=== PATIENT | male | born 1995 | race Caucasian/White ===

== ENCOUNTER 2017-01-20 19:26 | Emergency (ER) | payer BC ==
[~2017-01-20] VITALS: Ht 180.3 cm; Wt 106.1 kg
[2017-01-20 19:42] VITALS: BP 169/73
[2017-01-20 20:26] LABS: BILIRUBIN NEGATIVE (NEGATIVE); BLOOD NEGATIVE (NEGATIVE); CLARITY CLEAR (CLEAR); COLOR YELLOW (YELLOW); GLUCOSE NEGATIVE (NEGATIVE); KETONE NEGATIVE (NEGATIVE); LEUKO ESTERASE NEGATIVE (NEGATIVE); NITRITE NEGATIVE (NEGATIVE); UROBILINOGEN 0.2 E.U./dl (0.2-1.0)
[2017-01-20 20:34] LABS: BACTERIA TRACE
[2017-01-20 21:18] LABS: BASO % 0.3 % (0.0-1.0); EOS # 0.3 10*3/uL (0.0-0.4); HEMATOCRIT 39.1 % (42.0-52.0); HEMOGLOBIN 13.2 g/dl (14.0-18.0); LYMPH # 3.2 10*3/uL (1.3-4.4); LYMPH % 32.9 % (27.0-41.0); MEAN CELL VOLUME 89.7 fl (80.0-94.0); MEAN CORPUSCULAR HGB 30.3 pg (27.0-31.0); MEAN CORPUSCULAR HGB CONC 33.8 g/dl (33.0-37.0); MEAN PLATELET VOLUME 9.8 fl (9.6-12.3); MONO # 0.6 10*3/uL (0.1-1.0); MONO % 5.6 % (3.0-9.0); NEUT # 5.7 10*3/uL (2.3-7.9); PLATELET COUNT AUTOMATED 349 10*3/uL (130-400); RED BLOOD COUNT 4.36 10*6/uL (4.50-5.90); RED CELL DISTRI WIDTH 12.2 % (0-14.5); WHITE BLOOD COUNT 9.8 10*3/uL (4.8-10.8)
[2017-01-20 21:33] LABS: ALBUMIN 3.9 gm/dl (3.1-4.5); ALKALINE PHOSPHATASE 72 U/L (45-117); BUN 5 mg/dl (7-24); CHLORIDE 104 mmol/L (98-107); CREATININE 0.74 mg/dL (0.70-1.30); POTASSIUM 3.6 mmol/L (3.5-5.1); SGOT/AST 18 IU/L (3-35); SGPT/ALT 33 U/L (12-78); SODIUM 141 mmol/L (136-145); TOTAL PROTEIN 7.4 gm/dL (6.4-8.2)
== END 2017-01-20 23:54 | disposition home or self-care (01) ==
LOC: ED 19:26
PROVIDERS: Emergency Medicine
DX: I88.0 Nonspecific mesenteric lymphadenitis (principal); F17.200 Nicotine dependence, unspecified, uncomplicated

== ENCOUNTER 2017-06-16 06:09 | Emergency (ER) | payer BC ==
[~2017-06-16] VITALS: Ht 182.8 cm; Wt 104.3 kg
[2017-06-16 06:11] VITALS: BP 123/65
[2017-06-16] MEDS ORDERED: ZITHROMAX250 MG PO (06:32)
[2017-06-16] MEDS ORDERED: ROBITUSSIN DM3840 ML PO (06:32)
[2017-06-16] MEDS ORDERED: PREDNISONE20 M1 PO (06:32)
== END 2017-06-16 06:53 | disposition home or self-care (01) ==
LOC: ED 06:09
DX: J20.9 Acute bronchitis, unspecified (principal); I88.0 Nonspecific mesenteric lymphadenitis; Z91.040 Latex allergy status

== ENCOUNTER 2018-11-11 20:52 | Emergency (ER) | payer BC ==
[~2018-11-11] VITALS: Ht 182.8 cm; Wt 108.9 kg
[2018-11-11 20:52] VITALS: BP 120/70
[~2018-11-11 20:52] MED LIST: PREDNISONE20 M1 PO; ROBITUSSIN DM3840 ML PO; ZITHROMAX250 MG PO
[2018-11-11] MEDS ORDERED: CLINDAMYCIN HC300 MG PO (21:10)
[2018-11-11] MEDS ORDERED: IBU800 MG PO (21:10)
== END 2018-11-11 22:06 | disposition home or self-care (01) ==
LOC: ED 20:52
DX: K08.89 Other specified disorders of teeth and supporting structures (principal); Z79.2 Long term (current) use of antibiotics; Z79.899 Other long term (current) drug therapy

== ENCOUNTER 2019-11-05 16:28 | Emergency (ER) | payer SELFPAY ==
[~2019-11-05] VITALS: Ht 182.8 cm; Wt 113.4 kg
[~2019-11-05 16:28] MED LIST changes: +CLINDAMYCIN HC300 MG PO; +IBU800 MG PO
[2019-11-05 16:43] VITALS: BP 133/61
[2019-11-05] MEDS ORDERED: NAPROSYN500 MG PO (16:49)
[2019-11-05] MEDS ORDERED: AMOXICILLIN500 M2 PO (16:49)
== END 2019-11-05 18:01 | disposition home or self-care (01) ==
LOC: ED 16:28
DX: K08.89 Other specified disorders of teeth and supporting structures (principal); Z79.899 Other long term (current) drug therapy

== ENCOUNTER 2020-03-22 15:54 | Emergency (ER) | payer BC ==
[~2020-03-22] VITALS: Wt 106.6 kg
[~2020-03-22 15:54] MED LIST changes: +AMOXICILLIN500 M2 PO; +NAPROSYN500 MG PO
[2020-03-22 16:54] VITALS: BP 150/76
[2020-03-22] MEDS ORDERED: CLINDAMYCIN HC300 MG PO (19:21)
[2020-03-23] MEDS ORDERED: CLINDAMYCIN HC300 MG PO (16:25)
== END 2020-03-22 19:39 | disposition home or self-care (01) ==
LOC: ED 15:54
DX: K04.7 Periapical abscess without sinus (principal); Z79.899 Other long term (current) drug therapy

== ENCOUNTER 2020-07-17 02:03 | Emergency (ER) | payer BC ==
[~2020-07-17] VITALS: Ht 187.9 cm; Wt 97.1 kg
[2020-07-17 02:45] LABS: BASO # 0.1 10*3/uL (0.0-0.1); BASO % 0.4 % (0.0-1.0); EOS # 0.4 10*3/uL (0.0-0.4); HEMATOCRIT 40.9 % (42.0-52.0); LYMPH # 3.4 10*3/uL (1.3-4.4); LYMPH % 29.4 % (27.0-41.0); MEAN CELL VOLUME 90.1 fl (80.0-94.0); MEAN CORPUSCULAR HGB 29.5 pg (27.0-31.0); MEAN CORPUSCULAR HGB CONC 32.8 g/dl (33.0-37.0); MONO # 0.8 10*3/uL (0.1-1.0); MONO % 6.9 % (3.0-9.0); NEUT % 60.1 % (47.0-73.0); PLATELET COUNT AUTOMATED 359 10*3/uL (130-400); RED BLOOD COUNT 4.54 10*6/uL (4.50-5.90); RED CELL DISTRI WIDTH 12.4 % (0-14.5); WHITE BLOOD COUNT 11.7 10*3/uL (4.8-10.8)
[2020-07-17 03:01] LABS: ALBUMIN 3.7 gm/dl (3.1-4.5); ALKALINE PHOSPHATASE 73 U/L (45-117); BUN 5 mg/dl (7-24); CHLORIDE 107 mmol/L (98-107); CREATININE 0.78 mg/dL (0.70-1.30); LIPASE 139 U/L (73-393); POTASSIUM 3.7 mmol/L (3.5-5.1); SGOT/AST 6 IU/L (3-35); SGPT/ALT 29 U/L (12-78); SODIUM 138 mmol/L (136-145); TOTAL PROTEIN 7.2 gm/dL (6.4-8.2)
[2020-07-17 07:28] VITALS: BP 116/50
[2020-07-17] MEDS ORDERED: ZOFRAN4 MG PO (07:51)
[2020-07-17] MEDS ORDERED: IBU800 M2 PO (07:52)
== END 2020-07-17 08:01 | disposition home or self-care (01) ==
LOC: ED 02:03
PROVIDERS: Hospitalist
DX: K80.20 Calculus of gallbladder without cholecystitis without obstruction (principal); Z79.899 Other long term (current) drug therapy; Z98.890 Other specified postprocedural states

== ENCOUNTER 2022-06-14 15:53 | Emergency (ER) | payer SELFPAY ==
[~2022-06-14] VITALS: Ht 182.8 cm; Wt 86.2 kg
[~2022-06-14 15:53] MED LIST changes: +IBU800 M2 PO; +ZOFRAN4 MG PO
[2022-06-14 16:03] VITALS: BP 121/73
[2022-06-14 16:34] LABS: BASO % 0.4 % (0.0-1.0); EOS # 0.1 10*3/uL (0.0-0.4); EOS % 1.3 % (1.0-4.0); HEMATOCRIT 40.5 % (42.0-52.0); LYMPH # 2.5 10*3/uL (1.3-4.4); LYMPH % 23.3 % (27.0-41.0); MEAN CELL VOLUME 90.2 fl (80.0-94.0); MEAN CORPUSCULAR HGB CONC 34.3 g/dl (33.0-37.0); MEAN PLATELET VOLUME 9.6 fl (9.6-12.3); MONO # 0.6 10*3/uL (0.1-1.0); MONO % 5.6 % (3.0-9.0); NEUT # 7.4 10*3/uL (2.3-7.9); NEUT % 69.2 % (47.0-73.0); PLATELET COUNT AUTOMATED 306 10*3/uL (130-400); RED BLOOD COUNT 4.49 10*6/uL (4.50-5.90); RED CELL DISTRI WIDTH 12.7 % (0-14.5); WHITE BLOOD COUNT 10.6 10*3/uL (4.8-10.8)
[2022-06-14 16:50] LABS: ALKALINE PHOSPHATASE 46 U/L (46-116); BUN 5 mg/dl (9-23); CHLORIDE 104 mmol/L (98-107); POTASSIUM 3.3 mmol/L (3.4-5.1); SGPT/ALT 18 U/L (10-49)
== END 2022-06-14 18:45 | disposition home or self-care (01) ==
LOC: ED 15:53
PROVIDERS: Student in an Organized Health Care Education/Training Program
DX: R10.31 Right lower quadrant pain (principal); Z98.890 Other specified postprocedural states